=== PATIENT | male | born 1950 | race Caucasian/White ===

== ENCOUNTER 2017-09-24 19:03 | Emergency (ER) | payer OTHER ==
[~2017-09-24] VITALS: Ht 175.3 cm; Wt 95.3 kg
[2017-09-24] MEDS ORDERED: ADULT ASPIRIN81 MG (19:44)
[2017-09-24] MEDS ORDERED: METFORMIN HCL500 MG (19:44)
[2017-09-24] MEDS ORDERED: LIPITOR20 MG (19:44)
[2017-09-24] MEDS ORDERED: CLARITIN10 M2 (19:44)
== END 2017-09-24 21:51 | disposition home or self-care (01) ==
LOC: ER 19:03
DX: R25.2 Cramp and spasm (principal)